=== PATIENT | female | born 1955 | race Caucasian/White ===

== ENCOUNTER 2016-06-27 16:44 | Emergency (ER) | payer OTHER ==
--- NOTE | ~2016-06-27 | CR127 ---
[facility] A Service of [facility] RADIOLOGY TEXT RESULTS PATIENT: PRISCILLA VERGARA LOCATION: SED : 55 UNIT #: [id number] AGE: [address]: Allyssa Latham APRN SEX: F ORDER DR: [id number] [address] [address] [id number] MR#: [id number] Acc #: [id number] NAME: PRISCILLA VERGARA : 1955 SEX: F STUDY DATE/TIME: 06/27/2016 16:53 UNIT: SED ROOM: STUDY DESCRIPTION: CR Foot Complete Min 3 View Rt Attending Physician: Allyssa Latham A.P.R.N. Ordering Physician: Allyssa Latham A.P.R.N. Primary Care Physician: Michelle Villalba M.D. MEDICAL IMAGING REPORT This report is preliminary unless electronic signature is present. EXAM Right foot. INDICATIONS Right foot pain, redness and edema for 2 weeks. COMPARISON 08/29/2014. FINDINGS 3 views of the right foot were obtained. There is mild degenerative change at the first tarsometatarsal joint with some curvilinear bone density objects medial to the joint space unchanged since the prior study. These are very thin, measuring a millimeter or less in thickness. The other bones are normal except for a plantar calcaneal spur. There has been no change. IMPRESSION Stable degenerative changes at the first tarsometatarsal joint as compared with August 2014. There are no erosions present. The rest of the study is normal. Dictated by... Emil Flores M.D. THIS IS AN ELECTRONICALLY VERIFIED REPORT Emil Flores M.D. at 06/29/2016 3:39 PM OLAF/janice TD: 06/27/2016 20:58 JOB #: [id number] [facility] A Service of [facility] RADIOLOGY TEXT RESULTS PATIENT: PRISCILLA VERGARA LOCATION: SED : 55 UNIT #: [id number] AGE: [address]: Allyssa Latham APRN SEX: F ORDER DR: MEDICAL IMAGING REPORT Page 1 of 1
[~2016-06-27 16:44] MED LIST: AUGMENTIN PO; CLEOCIN HCL300 M1 PO; NO MEDICATIONS; PAXIL PO; PAXIL30 MG PO; TYLENOL #3 PO; ULTRAM ER100 MG PO; VICODIN 5/1 TAB 5/50 PO
[2016-06-27 17:19] LABS: BASOPHIL# 0.1 X10e3 (0-0.3); BASOPHIL% 0.8 % (0-2.5); EOSINOPHIL# 0.2 X10e3 (0-0.7); EOSINOPHIL% 2.2 % (0.0-7.0); HEMATOCRIT 38.9 % (35.0-45.0); HEMOGLOBIN 12.8 gm/dL (12.0-16.0); LYMPHOCYTE# 1.7 X10e3 (1.0-3.5); LYMPHOCYTE% 20.7 % (17.0-45.0); MEAN CELL VOLUME 81.7 FL (83-96); MEAN CORPUSCULAR HEMOGLOBIN 26.9 PG (28-34); MEAN CORPUSCULAR HGB CONC 32.9 g/dL (30-36); MEAN PLATELET VOLUME 7.1 FL (6.5-11.5); MONOCYTE# 0.5 X10e3 (0-1.0); MONOCYTE% 6.6 % (3.0-12.0); NEUTROPHIL# 5.6 X10e3 (1.5-7.1); NEUTROPHIL% 69.7 % (40-75); PLATELET COUNT 251 X10e3 (140-420); RED BLOOD COUNT 4.77 X10e (3.90-5.30); RED CELL DISTRIBUTION WIDTH 14.1 % (11.0-15.5)
[2016-06-27 17:24] LABS: DIFF IND NO
[2016-06-27 17:29] LABS: BUN/CREATININE RATIO 23.75; CALCIUM SERUM 8.5 mg/dL (8.4-10.2); CREATININE SERUM 0.8 mg/dL (0.6-1.4); GLOM FILT RATE Estimated 80.2 mL/min (>60); POTASSIUM 3.4 mmol/L (3.5-5.1); URIC ACID 5.3 mg/dL (2.6-7.2)
[2016-06-27 18:40] LABS: SEDIMENTATION RATE-SW ONLY 50 mm/hr (0-40)
== END 2016-06-27 19:25 | disposition home or self-care (01) ==
LOC: SED 16:44
PROVIDERS: Nurse Practitioner
DX: L03.115 Cellulitis of right lower limb (principal); M19.071 Primary osteoarthritis, right ankle and foot; Z88.2 Allergy status to sulfonamides
CPT/HCPCS: 29405; 73630; 80048; 84550; 85025; 85651; 99283; J1885

== ENCOUNTER 2016-09-06 08:53 | Emergency (ER) | payer OTHER | END 2016-09-06 09:53 | disposition home or self-care (01) | LOC: SED 08:53 | DX: K08.89 Other specified disorders of teeth and supporting structures (principal); Z88.2 Allergy status to sulfonamides | CPT/HCPCS: 99282 ==

== ENCOUNTER 2016-10-02 19:20 | Emergency (ER) | payer OTHER ==
[~2016-10-02] VITALS: Ht 175.3 cm; Wt 97.5 kg
== END 2016-10-02 20:35 | disposition home or self-care (01) ==
LOC: SED 19:20
DX: H10.9 Unspecified conjunctivitis (principal); F41.9 Anxiety disorder, unspecified; G62.9 Polyneuropathy, unspecified; Z88.2 Allergy status to sulfonamides
CPT/HCPCS: 99283